=== PATIENT | female | born 1945 | race Hispanic/Latino ===

== ENCOUNTER 2017-10-16 07:40 | Day surgery (SDC) | payer MEDICARE ==
[~2017-10-16] VITALS: Ht 144.8 cm; Wt 50.2 kg
[~2017-10-16 07:40] MED LIST: SODIUM CHLORIDE 0.9% 1000ML 1,000 ML IV ONE
[2017-10-16 07:58] VITALS: BP 155/74
[2017-10-16] MEDS ORDERED: LIDOCAINE HCL-MPF 2% 5ML VIAL ONE (08:28)
[2017-10-16] MEDS ORDERED: PROPOFOL 10 MG/ML 20ML VIAL IV ONE (08:28)
[2017-10-16] MEDS ORDERED: PREG25 PO (08:40)
[2017-10-16] MEDS ORDERED: OMEG100014 PO (08:40)
[2017-10-16] MEDS ORDERED: OMEP40CA37 PO (08:40)
[2017-10-16] MEDS ORDERED: CALC-1153 PO (08:40)
[2017-10-16] MEDS ORDERED: METO-408 PO (08:40)
[2017-10-16] MEDS ORDERED: MOMETASONE NASAL (08:40)
[2017-10-16] MEDS ORDERED: LACT10SO PO (08:40)
[2017-10-16] MEDS ORDERED: LISI-613 PO (08:40)
[2017-10-16] MEDS ORDERED: HYDR12.530 PO (08:40)
[2017-10-16 09:30] VITALS: BP 94/50
[2017-10-16 09:34] VITALS: BP 89/49
[2017-10-16 09:39] VITALS: BP 101/50
[2017-10-16 09:45] VITALS: BP 104/56
[2017-10-16 09:47] VITALS: BP 137/64
== END 2017-10-16 10:00 | disposition home or self-care (01) ==
LOC: ENDO 07:40 → DAH 07:40 → ENDO 10:00
PROVIDERS: ATTEND Internal Medicine
DX: I85.00 Esophageal varices without bleeding (principal); K29.50 Unspecified chronic gastritis without bleeding; K31.89 Other diseases of stomach and duodenum; K74.60 Unspecified cirrhosis of liver; E11.9 Type 2 diabetes mellitus without complications; B18.2 Chronic viral hepatitis C; I10 Essential (primary) hypertension; K21.9 Gastro-esophageal reflux disease without esophagitis; Z90.710 Acquired absence of both cervix and uterus; Z98.890 Other specified postprocedural states; Z79.899 Other long term (current) drug therapy
CPT/HCPCS: 43239; 82948 ×2; 88305; 88342; 93005; A4606; J2704; J3490; J7030

== ENCOUNTER 2018-05-20 08:32 | Day surgery (SDC) | payer MEDICARE ==
[~2018-05-20] VITALS: Ht 144.8 cm; Wt 50.3 kg
[2018-05-20] VITALS (7 sets, daily range): BP systolic 107–167; BP diastolic 61–81
[~2018-05-20 08:32] MED LIST changes: +CALC-1153 PO; +HYDR12.530 PO; +LACT10SO PO; +LIDOCAINE HCL 1% 20 ML VIAL ONE; +LISI-613 PO; +METO-408 PO; +MOMETASONE NASAL; +OMEG100014 PO; +OMEP40CA37 PO; +PREG25 PO; +PROPOFOL 10 MG/ML 20ML VIAL IV ONE
[2018-05-20] MEDS ORDERED: INSULIN (09:41)
[2018-05-20] MEDS ORDERED: ESOM20CA39 PO (09:41)
[2018-05-20] MEDS ORDERED: TRAMADOL (09:41)
[2018-05-20] MEDS ORDERED: LOSA50TA64 PO (09:41)
[2018-05-20] MEDS ORDERED: HYDR12.530 PO (09:41)
--- NOTE | 2018-05-20 10:35 | NUR ---
dc pt dc home via wc, no distress noted. denies any pain [email or web address] discomforts. accompanied by caregiver greg , no piv noted.
== END 2018-05-20 10:35 | disposition home or self-care (01) ==
LOC: ENDO 08:32 → DAH 08:32 → ENDO 10:35
PROVIDERS: ATTEND Internal Medicine
DX: K29.50 Unspecified chronic gastritis without bleeding (principal); K74.60 Unspecified cirrhosis of liver; K31.89 Other diseases of stomach and duodenum; I85.10 Secondary esophageal varices without bleeding; E11.9 Type 2 diabetes mellitus without complications; I10 Essential (primary) hypertension; K21.9 Gastro-esophageal reflux disease without esophagitis; Z79.899 Other long term (current) drug therapy; Z79.84 Long term (current) use of oral hypoglycemic drugs; Z90.710 Acquired absence of both cervix and uterus; Z98.890 Other specified postprocedural states; J44.9 Chronic obstructive pulmonary disease, unspecified
CPT/HCPCS: 43239; 82948 ×2; 88305; 88342; 93005; A4606; J2704 ×2; J7030

== ENCOUNTER 2021-01-10 09:21 | Day surgery (SDC) | payer MEDICARE ==
[~2021-01-10] VITALS: Ht 152.4 cm; Wt 48.1 kg
[~2021-01-10 09:21] MED LIST changes: +0.9%NACL 1000ML 1,000 ML IV ONE; +ESOM20CA39 PO; +INSULIN; -LACT10SO PO; -LIDOCAINE HCL 1% 20 ML VIAL ONE; -LISI-613 PO; +LOSA50TA64 PO; -MOMETASONE NASAL; -OMEP40CA37 PO; -PREG25 PO; -PROPOFOL 10 MG/ML 20ML VIAL IV ONE; -SODIUM CHLORIDE 0.9% 1000ML 1,000 ML IV ONE; +TRAMADOL
[2021-01-10 11:07] VITALS: BP 189/81
[2021-01-10] MEDS ORDERED: PROPOFOL 10 MG/ML 20ML VIAL IV ONE (11:31)
[2021-01-10 11:45] VITALS: BP 109/42
[2021-01-10 12:01] VITALS: BP 116/53
[2021-01-10 12:26] VITALS: BP 146/89
== END 2021-01-10 12:29 | disposition home or self-care (01) ==
LOC: ENDO 09:21 → DAH 09:21 → ENDO 12:29
PROVIDERS: ATTEND Internal Medicine Gastroenterology
DX: K74.60 Unspecified cirrhosis of liver (principal); K29.50 Unspecified chronic gastritis without bleeding; K31.89 Other diseases of stomach and duodenum; R14.0 Abdominal distension (gaseous); E11.9 Type 2 diabetes mellitus without complications; I10 Essential (primary) hypertension; K21.9 Gastro-esophageal reflux disease without esophagitis; Z90.710 Acquired absence of both cervix and uterus; Z98.890 Other specified postprocedural states; Z79.4 Long term (current) use of insulin; Z79.899 Other long term (current) drug therapy; Z20.822 Contact with and (suspected) exposure to COVID-19
CPT/HCPCS: 43239; 82948 ×2; 87635; 88305; 88342; A4215 ×2; A4221; A4222; A4223; A4606; A4620; A4663; C9803; J2704; J7030

== ENCOUNTER → 2021-03-14 | Outpatient (CLI) | payer MEDICARE ==
[~2021-03-14] VITALS: Ht 139.7 cm; Wt 48.3 kg
[~2021-03-14] MED LIST changes: -0.9%NACL 1000ML 1,000 ML IV ONE
[2021-03-14 10:08] LABS: HEMATOCRIT 40.9 % (36-48); MEAN CORPUSCULAR HEMOGLOBIN 26.8 pg (27.0-33.0); MEAN CORPUSCULAR HGB CONC 30.6 g/dL (32.0-36.0); MEAN CORPUSCULAR VOLUME 87.8 fL (79-99); PLATELET COUNT (AUTO) 146 K/uL (130-400); RED BLOOD CELL COUNT(AUTO) 4.66 MIL/uL (4.00-5.50); RED CELL DISTRIBUTION WIDTH 15.1 % (11.0-15.5); WHITE BLOOD COUNT (AUTO) 8.4 K/uL (4.8-10.8)
[2021-03-14 10:20] LABS: INR 1.14 (0.85-1.15); PROTHROMBIN TIME 12.3 SEC (9.6-11.6)
[2021-03-14 10:21] LABS: PARTIAL THROMBOPLASTIN TIME 29.5 SEC (26.3-35.5)
[2021-03-14 10:22] LABS: ALBUMIN 3.7 g/dL (3.5-5.0); BILIRUBIN,TOTAL 0.5 mg/dL (0.2-1.0); CREATININE 1.2 mg/dL (0.5-1.5); POTASSIUM 4.3 mmol/L (3.5-5.1)
[2021-03-15 09:17] VITALS: BP 136/51
== END | disposition home or self-care (01) ==
LOC: DAH 10:00 → EDSTATUS 03-16 13:00
PROVIDERS: ATTEND Otolaryngology Plastic Surgery within the Head & Neck
DX: Z01.818 Encounter for other preprocedural examination (principal); E04.2 Nontoxic multinodular goiter; J84.10 Pulmonary fibrosis, unspecified; M47.815 Spondylosis without myelopathy or radiculopathy, thoracolumbar region; R91.8 Other nonspecific abnormal finding of lung field; Z20.822 Contact with and (suspected) exposure to COVID-19
CPT/HCPCS: 36415; 71046; 80053; 85027; 85610; 85730; 87635; 93005; A6260